=== PATIENT | male | born 1975 | race Caucasian/White ===

== ENCOUNTER 2021-10-31 23:37 | Inpatient (IN) | payer OTHER ==
[~2021-10-31] VITALS: Ht 182.9 cm; Wt 97.1 kg
[2021-11-01 02:00] LABS: HEMOGLOBIN 12.2 gm/dl (14.0-17.5); RED BLOOD COUNT 4.35 M/UL (4.20-5.50); WHITE BLOOD COUNT 16.2 K/UL (4.5-11.0)
[2021-11-01] MEDS ORDERED: TAMSULOSIN HCL0.4 MG PO (12:26)
[2021-11-01] MEDS ORDERED: FINASTERIDE5 MG PO (12:26)
[2021-11-01] MEDS ORDERED: LANTUS SOL100 UNIT/1 SQ (12:29)
--- NOTE | 2021-11-02 03:47 | NUR ---
CALLED SYSTEMS PROGRAM MANAGER AFTER SPEAKING TO MD REGARDING BP. BOTH MD AND SYSTEMS PROGRAM MANAGER AWARE OF BP BEFORE SENDING PATIENT TO [facility].
[2021-11-02 09:11] LABS: HEMOGLOBIN 11.2 gm/dl (14.0-17.5); WHITE BLOOD COUNT 14.7 K/UL (4.5-11.0)
--- NOTE | 2021-11-02 13:41 | NUR ---
PATIENT HAD CRITICAL LAB VALUE BUN OF 109. VALUE WAS CALLED TO DR. ANDRADE AT 0957. NO ORDERS WERE GIVEN. WILL CONTINUE TO MONITOR.
[2021-11-03 08:20] LABS: HEMOGLOBIN 10.6 gm/dl (14.0-17.5); RED BLOOD COUNT 3.88 M/UL (4.20-5.50); WHITE BLOOD COUNT 16.8 K/UL (4.5-11.0)
--- NOTE | 2021-11-03 15:56 | NUR ---
1300 PTS IV LEAKING UNABLE TO GET ANOTHER ONE NOTIFIED TAKE OFF WORKER MCKENNA
--- NOTE | 2021-11-04 00:45 | NUR ---
11/03/21 2145 REFUSED TO HAVE BLOOD GLUCOSE REPEATED
[2021-11-04 09:39] LABS: HEMOGLOBIN 10.5 gm/dl (14.0-17.5); RED BLOOD COUNT 3.82 M/UL (4.20-5.50); WHITE BLOOD COUNT 15.7 K/UL (4.5-11.0)
--- NOTE | 2021-11-05 06:31 | NUR ---
PATIENT VERY ADAMANT ON LEAVING HOSPITAL TODAY. PATIENT REFUSED FURTHER GLUCOSE CHECKS. BLOOD PRESSURE CONTROLLED WITH PO MEDS. NO IV ACCESS, AWARE WITH PICC CONSULT IN PLACE.
[2021-11-05 10:45] LABS: RED BLOOD COUNT 3.61 M/UL (4.20-5.50); WHITE BLOOD COUNT 16.3 K/UL (4.5-11.0)
--- NOTE | 2021-11-05 19:16 | NUR ---
@1635 PT CALLED OUT ASKING WHEN HIS NEXT DOSE OF XANAX WAS DUE, I INFORMED HIM IT WASN'T DUE UNTIL 8PM TONIGHT, HE THEN STATES THAT HE WILL JUST GO HOME, WENT BACK TO THE PATIENT ROOM TO TALK WITH HIM, HE INFORMED ME HE JUST WANTED TO GO HOME, I ASKED IF IT WAS REGARDING HIS NERVE MEDICATIONS AND HE DIDN'T GIVE ME AN ANSWER, HE THEN WANTS TO KNOW WHY HE IS BREATHING HEAVILY AT THIS TIME HIS OXYGEN LEVEL ON RA WAS 98%, I DISCUSSED HIS DIAGNOSIS OF COVID WITH HIM AND THE SYMPTOMS AND HE INSISTED THAT HE DID NOT HAVE ANY COVID SYMPTOMS I CALLED DR. CARLOS TO INFORM HER OF THE PATIENT WANTING TO LEAVE AMA SHE INSTRUCTED ME THAT SHE COULD INCREASE HIS FRQUENCY ON HIS NERVE MEDICATION AND ADD SOME BREATHING TREATMENTS, I THEN WENT BACK AND SPOKE WITH THE PATIENT REGARDING THE CHANGES IN THE MEDICATIONS AND THE PATIENT WAS STILL ADAMENT ABOUT GOING HOME, I TOOK THE AMA PAPERS BACK TO THE PATIENT FOR HIM TO SIGN AND HE ASKS IF I CAN JUST WAIT A "LITTLE WHILE" HE COULDN'T WALK DOWN STAIRS RIGHT NOW AND REFUSED TO SIGN THE AMA PAPERS AND ASKED FOR HIS XANAX. I GAVE HIM HIS MEDICATIONS ORDERED, THE PATIENT THEN PROCEEDS TO ASK IF HE CAN TAKE A SHOWER, I SET THE PATIENT UP AND HE TOOK A SHOWER. DR. CARLOS WAS ON THE FLOOR AND WAS NOTIFIED THAT THE PATIENT DID NOT SIGN THE AMA PAPER AND HE TOOK A SHOWER. AFTER THE PATIENT WAS OUT OF THE SHOWER HE LET ME CHECK HIS BLOOD SUGAR AND RECONNECT HIS ABX TO HIS IV AND DID NOT SAY ANYTHING IN REGARDS TO WANTING TO LEAVE AMA. DR. CARLOS WAS MADE AWARE OF THIS. @1825 THE PATIENT CALLED OUT AND STATES HE IS LEAVING TO BRING THE PAPERS, I WENT AND SPOKE WITH THE PATIENT AND HE SIGNED THE AMA PAPERS THE PATIENT IS ALERT AND ORIENTED X3 AND IS AWARE OF THE RISK OF LEAVING AMA, DR. CARLOS CALLED AND NOTIFIED, IV REMOVED SITE WNL
== END 2021-11-05 18:37 | disposition left against medical advice (07) | DRG 177 ==
LOC: ER1 23:37 → MED SURG 4 11-01 09:05 → CDU 11-01 09:05 → PROG CARE 11-01 14:27 → MED SURG 4 11-02 01:04
PROVIDERS: Internal Medicine; Internal Medicine Nephrology; Physician Assistant; Physician Assistant Medical; ADMIT Internal Medicine
PROC: 8E0ZXY6 Isolation (ICD-10-PCS; 2021-11-01)
PROC: 3E0333Z Introduction of Anti-inflammatory into Peripheral Vein, Percutaneous Approach (ICD-10-PCS; 2021-11-01)
PROC: B24BZZZ Ultrasonography of Heart with Aorta (ICD-10-PCS; principal; 2021-11-02)
DX: U07.1 COVID-19 (principal); J18.9 Pneumonia, unspecified organism; I50.31 Acute diastolic (congestive) heart failure; J96.01 Acute respiratory failure with hypoxia; B19.10 Unspecified viral hepatitis B without hepatic coma; N17.9 Acute kidney failure, unspecified; N30.00 Acute cystitis without hematuria; E87.2 Acidosis; E87.1 Hypo-osmolality and hyponatremia; I11.0 Hypertensive heart disease with heart failure; E87.5 Hyperkalemia; F19.10 Other psychoactive substance abuse, uncomplicated; G89.3 Neoplasm related pain (acute) (chronic); E66.9 Obesity, unspecified; E11.9 Type 2 diabetes mellitus without complications; I08.1 Rheumatic disorders of both mitral and tricuspid valves; I27.20 Pulmonary hypertension, unspecified; B19.20 Unspecified viral hepatitis C without hepatic coma; Z79.4 Long term (current) use of insulin; Z83.3 Family history of diabetes mellitus
CPT/HCPCS: ECHO; 36415; 71045; 80048; 80053; 80202; 81001; 82550; 82553; 82962; 83036; 83605; 83735; 83880; 84100; 84439; 84443; 84484; 85025; 85027; 85610; 85652; 85730; 86140; 87040; 87086; 93005; 93306; 96374; 99285; J0360; J0696; J1100; J1650; J1940; J3370; J7070; P9047; U0002